=== PATIENT | male | born 1955 | race Caucasian/White ===

== ENCOUNTER 2016-11-11 19:57 | Emergency (ER) | payer SELFPAY ==
[2016-11-11 20:16] VITALS: BP 129/73
--- NOTE | 2016-11-11 21:17 | UC ---
Lower Extremity/Ankle HPI - HPI Summary HPI Summary: right ankle injury 11/07--he was climbing on a rack to store spools, lost his balance and used his foot to anchor against a fall, twisting the foot at the time. Increasing pain and swelling over th past 4 days, no meds taken. Was wearing a running shoe at the time. - History of Current Complaint Chief Complaint: UCLowerExtremity Stated Complaint: RT ANKLE INJURY Time Seen by Provider: 11/11/16 21:11 Hx Obtained From: Patient Onset/Duration: Sudden Onset, Lasting Days - 4 Severity Initially: Moderate Severity Currently: Moderate Pain Intensity: 4 Pain Scale Used: 0-10 Numeric Aggravating Factor(s): Standing, Ambulation Alleviating Factor(s): Rest Able to Bear Weight: Yes Related History: Occupational Injury - Risk Factors Gout Risk Factors: Age Over 40 DVT Risk Factors: Negative Septic Arthritis Risk Factor: Negative - Allergies/Home Medications Allergies/Adverse Reactions: Allergies Allergy/AdvReac Type Severity Reaction Status Date / Time Bee Venom Allergy Hives Verified 11/11/16 20:16 Home Medications: Home Medications NK [No Home Medications Reported] 11/11/16 [History Confirmed 11/11/16] PMH/Surg Hx/FS Hx/Imm Hx Previously Healthy: Yes - Surgical History Surgical History: Yes Surgery Procedure, Year, and Place: APPY - Family History Known Family History: Positive: Other - mother of lung cancer father has skin cancer, uncertain type - Social History Alcohol Use: Occasionally Substance Use Type: Marijuana Smoking Status (MU): Current Every Day Smoker Type: Cigarettes Amount Used/How Often: 1/2 PPD Length of Time of Smoking/Using Tobacco: 43 YRS Have You Smoked in the Last Year: Yes Review of Systems Constitutional: Negative, Other - low appetite chronically Skin: Negative Eyes: Negative ENT: Negative Respiratory: Negative Cardiovascular: Negative Gastrointestinal: Negative Genitourinary: Negative Motor: Decreased ROM - right ankle, with pain and swelling. Neurovascular: Negative Musculoskeletal: Negative Neurological: Negative Psychological: Negative All Other Systems Reviewed And Are Negative: Yes Physical Exam Triage Information Reviewed: Yes Appearance: Pain Distress - mild to moderate., Thin Vital Signs: Initial Vital Signs Temp 98.5 F 11/11/16 20:06 Pulse 67 11/11/16 20:06 Resp 12 11/11/16 20:06 BP 129/73 11/11/16 20:06 Pulse Ox 100 11/11/16 20:06 Vital Signs Reviewed: Yes Respiratory: Positive: Lungs clear, Normal breath sounds Cardiovascular: Positive: RRR, No Murmur Musculoskeletal: Positive: ROM Limited @ - right ankle, decreased dorsiflexion. swelling ++ over medial malleolus, tender across anterior joint line. No metatarsal pain Neurological: Positive: Alert, Muscle Tone Normal Psychological Exam: Normal Skin Exam: Normal Diagnostics - Laboratory Diagnostic Studies Completed/Ordered: xray without fracture per MH. Awaiting radiology read. Lower Extremity Course/Dx - Course Course Of Treatment: DIVINA wrap for ankle strain. Patient declined CAM boot or immobilization, off work or anti-inflammatories. - Differential Dx/Diagnosis Differential Diagnosis/HQI/PQRI: Contusion, Sprain, Strain Provider Diagnoses: right ankle sprain Discharge - Discharge Plan Condition: Stable Disposition: HOME Patient Education Materials: Ankle Sprain (ED) Referrals: No Primary Care Phys,NOPCP [Primary Care Provider] - Mic Gomez MD [Medical Doctor] - Additional Instructions: As discussed, you can modify your work to avoid a lot of climbing, and want to return to work tomorrow. ice and elevation can help with the swelling and pain. Use DIVINA wrap as needed, but if the pain and swelling continue, please follow up with Dr. Gomez as referred.
--- NOTE | 2016-11-11 22:32 | RAD ---
INDICATION: Medial ankle pain 3 days after an injury COMPARISON: None. TECHNIQUE: 3 views of the right ankle were obtained. FINDINGS: The bones are normal alignment. Joint spaces appear maintained. No fracture is seen. IMPRESSION: Normal ankle radiograph. If the patient's symptoms persist, follow-up imaging is recommended.
== END 2016-11-11 22:02 | disposition home or self-care (01) ==
LOC: UCCORT 19:57
DX: S93.401A Sprain of unspecified ligament of right ankle, initial encounter (principal); W17.89XA Other fall from one level to another, initial encounter; Y93.89 Activity, other specified; Y92.9 Unspecified place or not applicable; Y99.0 Civilian activity done for income or pay; Z91.030 Bee allergy status; F17.210 Nicotine dependence, cigarettes, uncomplicated
CPT/HCPCS: 99202; G0463